=== PATIENT | female | born 1980 | race Caucasian/White ===

== ENCOUNTER 2024-09-17 12:11 | Emergency (ER) | payer MEDICARE, OTHER ==
[~2024-09-17] VITALS: Ht 157.5 cm; Wt 52.3 kg
[~2024-09-17 12:11] MED LIST: DOXYCYCLINE HY100 MG PO; FLAGYL500 MG PO; NORCO 5-325 TA1 EACH PO
[2024-09-17 12:57] LABS: BASOPHILS 0.4 % (0.1-1.2); EOSINOPHILS 0.7 % (0.7-5.8); LYMPHOCYTES 29.3 % (19.3-51.7); MCH 32.2 PG (25.6-32.2); MCHC 34.1 g/dL (32.2-35.5); MCV 94.3 fL (79.4-94.8); MONOCYTES 8.3 % (4.7-12.5); NEUTROPHILS 60.7 % (34.0-71.1); RBC 4.41 M/uL (3.93-5.22)
[2024-09-17 13:13] LABS: ALT (SGPT) 24.0 U/L (14-59); AST (SGOT) 14.0 U/L (15-37); GLOMERULAR FILTRATION RATE,EST 103.0 mL/min (>60); PROTEIN, TOTAL 6.7 g/dL (6.4-8.2); UREA NITROGEN 13.0 mg/dL (7-18)
[2024-09-17 14:00] LABS: BLOOD/HGB, URINE NEGATIVE (Negative); KETONE, URINE NEGATIVE (Negative); LEUK ESTERASE, URINE NEGATIVE (negative); NITRITE, URINE NEGATIVE (negative)
[2024-09-17] MEDS ORDERED: SODIUM CHLORIDE 0.9% 1,000 ML IV PRN (14:15)
[2024-09-17] MEDS ORDERED: OMEPRAZOLE20 MG PO (14:31)
[2024-09-17 15:15] VITALS: BP 96/81
== END 2024-09-17 15:15 | disposition home or self-care (01) ==
LOC: ED 12:11
PROVIDERS: Emergency Medicine
DX: R10.33 Periumbilical pain (principal); F17.200 Nicotine dependence, unspecified, uncomplicated; Z88.1 Allergy status to other antibiotic agents; Z88.5 Allergy status to narcotic agent; Z79.899 Other long term (current) drug therapy
CPT/HCPCS: 36415; 74176; 80053; 81003; 83690; 84703; 85025; 96374; 99284-25; J2405; J7030